=== PATIENT | female | born 1955 ===

== ENCOUNTER 2017-10-16 07:34 | Day surgery (SDC) | payer BC ==
[2017-08-04 13:27] VITALS: BMI 21.2
[2017-10-16 08:30] VITALS: O2SAT 100
[2017-10-16] MEDS ORDERED: Lidocaine 2% Jelly (Uro-Jet) ONE (10:31)
[2017-10-16] MEDS ORDERED: cefTRIAXone IV 1 gm in Dextros 50 ML IVPB ONE (10:31)
[2017-10-16] MEDS ORDERED: HYDROmorphone 0.5 mg/0.5 ml ISec IVP PRN (10:41)
[2017-10-16] MEDS ORDERED: Midazolam 2 MG/2 ML VIAL ONE (10:42)
[2017-10-16] MEDS ORDERED: Propofol 10 mg/ml Inj (20 ML) ONE (10:42)
[2017-10-16 13:33] VITALS: RESP 18
[2017-10-16 13:38] VITALS: BP 120/58; PULSE 62; TEMP 97.7
--- NOTE | 2017-10-16 19:18 | RAD ---
HISTORY: LT. URETER STONE COMPARISON: Abdomen KUB 08/20/2017. FINDINGS: BOWEL: Normal. No obstruction. No free air. Moderate AP material seen the left hemicolon. Initial image demonstrates double-J left ureteral stent in position with final image demonstrating removal. BONES: Normal. OTHER FINDINGS: None. IMPRESSION: Removal of left double-J stent. No suspicious radiodensities identified in the abdomen to suggest renal calculi at this time.
--- NOTE | 2017-10-16 22:51 | OP ---
PROCEDURE DATE: 10/16/2017 TIME: Roughly 11:08 a.m. BRIEF HISTORY: The patient is status post cystoscopy with ureteroscopic laser lithotripsy done at [facility] in [place] approximately 2 weeks ago, and currently for cystoscopy with insertion of the left ureteral stent with removal of all stone fragments. The patient currently for cystoscopy and removal of her left ureteral stent. DESCRIPTION OF PROCEDURE: The patient was placed on the cystoscopy table in the dorsal lithotomy position, prepped and draped in the usual sterile fashion with Betadine solution. Under adequate IV sedation, with Dr. Payan and valve nurse catering service manager, approximately 10 mL of 2% Xylocaine jelly was injected intraurethrally followed by insertion of a #22-German Storz cystoscope into the bladder. Using sterile water as the irrigation solution throughout the entire procedure, the bladder was examined in all 4 quadrants and the only foreign body seen in the bladder was the indwelling multi-length left ureteral stent, which did not have any encrustation. A preop KUB showed the stent in good position in the left ureter and collecting system. Next, using a rigid grasper, the stent was grasped with the grasper and removed in its entirety with the use of the scope. The patient tolerated the procedure very well without any blood loss and was then brought to the recovery room in satisfactory condition. Postop KUB showed no evidence of any residual calcifications along the entire left collecting system, ureter down to the bladder. Plan for this patient is to maintain the patient on increased fluid hydration plus lemonade, and we will see the patient in office followup in about 1 month and we will schedule the patient for a stone risk profile. Darryl Lowry MD
== END 2017-10-16 12:45 | disposition home or self-care (01) ==
LOC: C.SDS 07:34
PROVIDERS: ATTEND Urology
DX: Z46.6 Encounter for fitting and adjustment of urinary device (principal); N20.1 Calculus of ureter

== ENCOUNTER 2018-08-27 08:45 | Outpatient (CLI) | payer BC | END 2018-08-27 08:46 | disposition home or self-care (01) | LOC: C.PAT 08:45 | DX: D17.9 Benign lipomatous neoplasm, unspecified (principal) ==

== ENCOUNTER 2018-08-31 05:46 | Day surgery (SDC) | payer BC ==
[2018-08-31 06:34] VITALS: BMI 20.7
[2018-08-31] MEDS ORDERED: Bupivacaine 0.25% 20 ML INJ IJ ONE (07:39)
[2018-08-31] MEDS ORDERED: Lidocaine/Epinephrine 1% 1:100000 10 ML IJ ONE (07:40)
[2018-08-31] MEDS ORDERED: ceFAZolin 1 gm in NS 1 GM/100 ML BAG IVPB ONE (07:40)
[2018-08-31] MEDS ORDERED: Midazolam 2 MG/2 ML VIAL ONE (07:52)
[2018-08-31] MEDS ORDERED: Propofol 10 mg/ml Inj (20 ML) ONE (07:52)
[2018-08-31] MEDS ORDERED: Lidocaine Hydrochloride 5 ML INJ ONE (07:58)
--- NOTE | 2018-08-31 09:11 | PCM.SURG1 ---
Surgeon's Initial Post Op Note - Surgeon's Notes Surgeon: Dr. Kraft Associate Professor Of Kinesiology: Sheila PGY2 Type of Anesthesia: IV Sedation, Local Anesthesia Administered By: Dr. Payan Pre-Operative Diagnosis: Lipoma of Back Operative Findings: See operative report Post-Operative Diagnosis: Same Operation Performed: Excision of Lipoma of the back Specimen/Specimens Removed: Back Lipoma Estimated Blood Loss: EBL {In ML}: 5 Blood Products Given: N/A Drains Used: No Drains Post-Op Condition: Good Date of Surgery/Procedure: 08/31/18 Time of Surgery/Procedure: 09:10
[2018-08-31] MEDS ORDERED: HYDROmorphone 0.5 mg/0.5 ml ISec IVP PRN (09:20)
[2018-08-31 11:28] VITALS: BP 107/58; PULSE 66; RESP 18; TEMP 97.8; O2SAT 98
--- NOTE | 2018-08-31 11:48 | OP ---
PROCEDURE DATE: 08/31/2018 PREOPERATIVE DIAGNOSIS: Lipoma of the right mid back, approximately 4 x 5 cm size. POSTOPERATIVE DIAGNOSIS: Lipoma of the right mid back, approximately 4 x 5 cm size. PROCEDURES DONE: 1. Excision of the lipoma of the mid right back 4 x 5 cm size. 2. Excision of the redundant skin and subcutaneous tissue of the back. 3. Layered closure of the wound 5 x 3 x 3 cm size, complex. TYPE OF ANESTHESIA: Local anesthesia plus sedation. ESTIMATED BLOOD LOSS: Around 10 mL. DRAINS: None. PATHOLOGY: The lipoma of the back as well as the redundant skin was sent for pathology. COMPLICATIONS: None. INTRAOPERATIVE FINDINGS: The patient had a large lipoma of the mid back and the patient also had a finger-like projection on lipoma that was completely excised. DESCRIPTION OF PROCEDURE: On intraoperative steps, this 63-year-old female who was diagnosed with a lipoma of the mid back and the patient was consented for excision of the lipoma of the mid back, brought to the OR, placed in a left lateral position. The right side of the back was prepped and draped in the usual sterile fashion. Local anesthesia was injected and some mild sedation was given, and an elliptical incision was made, and upper and lower flaps were created. The dissection was carried down deep up to the underlying fascia as well as the muscles, and the medial lateral dissection was done. The lipoma was completely excised and it was sent to the table for pathology. The overlying redundant skin was also excised and it was also sent to the table for pathology. Now, the wound was irrigated and the wound hemostasis was achieved. Upper and lower flaps as well as the deep subcu was sutured to the underlying fascia and muscles; the deep subcu with 3-0 Vicryl, the superficial subcu with a 3-0 Vicryl and skin with a 4-0 Monocryl; and dry sterile dressing was applied. The patient tolerated the procedure well. Count of the instrument and gauze was correct. There was no apparent complication. The patient was reversed from sedation and sent to the postanesthesia care unit in stable condition. Chirag Kraft MD
== END 2018-08-31 12:00 | disposition home or self-care (01) ==
LOC: C.SDS 05:46
PROVIDERS: ATTEND Surgery Surgical Critical Care
DX: D17.1 Benign lipomatous neoplasm of skin and subcutaneous tissue of trunk (principal); L98.7 Excessive and redundant skin and subcutaneous tissue
CPT/HCPCS: 21930; 88304; J0690; J2250; J2704; J3010